=== PATIENT | female | born 1995 | race Caucasian/White ===

== ENCOUNTER 2018-05-19 21:02 | Emergency (ER) | payer OTHER ==
[~2018-05-19 21:02] MED LIST: ETON1VAG7 VG; MULT-856 PO
[2018-05-19] MEDS ORDERED: NS(*) 0.9% 1000 ML BAG 1,000 ML IV ONE (21:25)
--- NOTE | 2018-05-19 21:28 | ER Report ---
History and Physical Time Seen By MD: 21:15 Hx. of Stated Complaint: STABBING CHEST PAIN WITH SOB THAT STARTED ABOUT 45 MIN AGO HPI/ROS CHIEF COMPLAINT: Chest pain, shortness breath HISTORY OF PRESENT ILLNESS: Previously healthy 23-year-old female donated blood this morning. She felt somewhat lightheaded afterwards and took a nap. She was feeling well until approximately 2030 when she noted chest pain that was sharp a nd initially on the right upper chest that lasted 45 minutes. This recurred again this time on the left upper chest and again lasted 45 minutes. Pain was associated with shortness of breath which has continued. Patient is mildly dyspneic at this time. She does not have chest pain right now. Pain did not radiate to back, jaw, shoulders. Patient was sitting at the time. She now notes no change in position or activity that affects pain. Is not changed with exertion. She has not had recent travel, no lower extremity swelling or edema. No lower extremity pain. No family history of DVT or cardiac disease at a young age. Patient has NuvaRing, last measured. At the end of April was normal, denies tobacco, drugs, alcohol. REVIEW OF SYSTEMS: Constitutional: No fever, no chills. Eyes: No discharge. ENT: No sore throat. Cardiovascular: above Respiratory: above Gastrointestinal: No abdominal pain, no vomiting. Genitourinary: no dysuria Musculoskeletal: No back pain. Skin: No rashes. Neurological: No headache. Remainder of the 14 system rev: Yes Allergies: Coded Allergies: No Known Drug Allergies (Unverified , 05/19/18) Home Meds Reported Medications Multivitamins,Ther W-Minerals (VITAMIN AND MINERALS) 1 Each Tablet, 1 EACH PO QDAY 06/16/15 Etonogestrel/Ethinyl Estradiol (NUVARING VAGINAL RING) 1 Each Vag.ring, 1 EACH VG, VAG.RING 06/16/15 Reviewed Nurses Notes: Yes Hx Smoking: No Smoking Status: Never Smoker Hx Substance Use Disorder: No Hx Alcohol Use: Yes (SOCIALLY) Constitutional Vital Sign - Last 24 Hours 05/19/18 05/19/18 05/19/18 05/19/18 21:02 21:06 21:08 21:12 Temp 98.7 Pulse ??? 102 Resp 14 B/P (MAP) 90/70 90/70 (77) 119/81 (94) Pulse Ox 94 O2 Delivery Room Air 05/19/18 05/19/18 05/19/18 05/19/18 21:17 21:30 21:32 21:47 Pulse 90 84 ??? Resp 20 26 9 B/P (MAP) 117/78 (91) Pulse Ox 93 05/19/18 05/19/18 05/19/18 05/19/18 21:54 22:00 22:02 22:17 Pulse 73 84 B/P (MAP) 117/62 (80) 126/71 (89) Pulse Ox 95 94 05/19/18 05/19/18 05/19/18 22:30 22:32 22:41 Pulse 71 Resp 25 B/P (MAP) 102/71 (81) 86/63 (71) Pulse Ox 93 Intake and Output 05/19/18 05/19/18 05/20/18 14:59 22:59 06:59 Intake Total 1000 ml Balance 1000 ml Physical Exam General Appearance: The patient is alert, has no immediate need for airway protection and no signs of toxicity. [ ] Eyes: Pupils equal and round no pallor or injection. ENT, Mouth: Mucous membranes are moist. Respiratory: There are no retractions, lungs are clear to auscultation. Cardiovascular: Regular rate and rhythm. no m/r/g, pt has significant heart rate variability both respiratory and while talking. She appears anxious Gastrointestinal: Abdomen is soft and non tender, no masses, bowel sounds normal. Neurological: alert, oriented, no focal deficits. Skin: Warm and dry, no rashes. Musculoskeletal: Extremities are nontender, nonswollen and have full range of motion. DIFFERENTIAL DIAGNOSIS: chest pain including but not limited to myocardial ischemia, pericarditis pulmonary embolus, chest wall pain, pleural inflammation and pulmonary infectious causes. Medical Decision Making Data Points Result Diagram: 05/19/18211105/19/182111 Laboratory Hematology Test 05/19/18 21:05 05/19/18 21:12 Urine Color Straw Urine Clarity Clear Urine pH 7.0 pH (4.8-9.5) Urine Specific [place] 1.005 Urine Protein Negative mg/dL (NEGATIVE) Urine Glucose (UA) Negative mg/dL (NEGATIVE) Urine Ketones Negative mg/dL (NEGATIVE) Urine Blood Negative (NEGATIVE) Urine Nitrite Negative (NEGATIVE) Urine Bilirubin Negative (NEGATIVE) Urine Urobilinogen Negative mg/dL (0.2-1.9) Urine Leukocyte Esterase Negative (NEGATIVE) Urine RBC None /HPF (0-2/HPF) Urine WBC <1 /HPF (0-5/HPF) Urine Squamous Epithelial Cells Few /LPF (</=FEW) Urine Bacteria Negative /HPF (NONE-FEW) Urine Mucus None /HPF (NONE-FEW) Red Blood Count 4.49 M/uL (4.17-5.56) Mean Corpuscular Volume 86.0 fL (80.0-96.0) Mean Corpuscular Hemoglobin 28.8 pg (26.0-33.0) Mean Corpuscular Hemoglobin Concent 33.5 g/dL (32.0-36.0) Red Cell Distribution Width 12.3 % (11.5-14.5) Mean Platelet Volume 10.5 fL (7.2-11.1) Neutrophils (%) (Auto) 44.6 % (39.4-72.5) Lymphocytes (%) (Auto) 36.5 % (17.6-49.6) Monocytes (%) (Auto) 14.7 % (4.1-12.4) Eosinophils (%) (Auto) 2.5 % (0.4-6.7) Basophils (%) (Auto) 1.7 % (0.3-1.4) Nucleated RBC Relative Count (auto) 0.0 /100WBC Neutrophils # (Auto) 2.0 K/uL (2.0-7.4) Lymphocytes # (Auto) 1.7 K/uL (1.3-3.6) Monocytes # (Auto) 0.7 K/uL (0.3-1.0) Eosinophils # (Auto) 0.1 K/uL (0.0-0.5) Basophils # (Auto) 0.1 K/uL (0.0-0.1) Nucleated RBC Absolute Count (auto) 0.00 K/uL D-Dimer Quantitative (PE/DVT) < 0.27 ug/ml (0-0.50) Sodium Level 140 mmol/L (137-145) Potassium Level 3.8 mmol/L (3.5-5.0) Chloride Level 107 mmol/L (98-107) Carbon Dioxide Level 22 mmol/L (22-31) Blood Urea Nitrogen 8 mg/dl (7-18) Creatinine 0.60 mg/dl (0.52-1.04) Glomerular Filtration Rate Calc > 60.0 Random Glucose 102 mg/dl (75-110) Calcium Level 9.1 mg/dl (8.4-10.2) Total Bilirubin 0.2 mg/dl (0.2-1.3) Aspartate Amino Transf (AST/SGOT) 25 U/L (0-35) Alanine Aminotransferase (ALT/SGPT) 26 U/L (0-56) Alkaline Phosphatase 52 U/L (0-126) Troponin I < 0.012 ng/ml Total Protein 7.5 g/dl (6.3-8.2) Albumin 4.4 g/dl (3.5-5.0) Human Chorionic Gonadotropin, Qual Negative (NEGATIVE) Chemistry Test 05/19/18 21:05 05/19/18 21:12 Urine Color Straw Urine Clarity Clear Urine pH 7.0 pH (4.8-9.5) Urine Specific [place] 1.005 Urine Protein Negative mg/dL (NEGATIVE) Urine Glucose (UA) Negative mg/dL (NEGATIVE) Urine Ketones Negative mg/dL (NEGATIVE) Urine Blood Negative (NEGATIVE) Urine Nitrite Negative (NEGATIVE) Urine Bilirubin Negative (NEGATIVE) Urine Urobilinogen Negative mg/dL (0.2-1.9) Urine Leukocyte Esterase Negative (NEGATIVE) Urine RBC None /HPF (0-2/HPF) Urine WBC <1 /HPF (0-5/HPF) Urine Squamous Epithelial Cells Few /LPF (</=FEW) Urine Bacteria Negative /HPF (NONE-FEW) Urine Mucus None /HPF (NONE-FEW) White Blood Count 4.5 k/uL (4.5-11.0) Red Blood Count 4.49 M/uL (4.17-5.56) Hemoglobin 12.9 g/dL (12.0-16.0) Hematocrit 38.7 % (34.0-47.0) Mean Corpuscular Volume 86.0 fL (80.0-96.0) Mean Corpuscular Hemoglobin 28.8 pg (26.0-33.0) Mean Corpuscular Hemoglobin Concent 33.5 g/dL (32.0-36.0) Red Cell Distribution Width 12.3 % (11.5-14.5) Platelet Count 225 K/uL (150-450) Mean Platelet Volume 10.5 fL (7.2-11.1) Neutrophils (%) (Auto) 44.6 % (39.4-72.5) Lymphocytes (%) (Auto) 36.5 % (17.6-49.6) Monocytes (%) (Auto) 14.7 % (4.1-12.4) Eosinophils (%) (Auto) 2.5 % (0.4-6.7) Basophils (%) (Auto) 1.7 % (0.3-1.4) Nucleated RBC Relative Count (auto) 0.0 /100WBC Neutrophils # (Auto) 2.0 K/uL (2.0-7.4) Lymphocytes # (Auto) 1.7 K/uL (1.3-3.6) Monocytes # (Auto) 0.7 K/uL (0.3-1.0) Eosinophils # (Auto) 0.1 K/uL (0.0-0.5) Basophils # (Auto) 0.1 K/uL (0.0-0.1) Nucleated RBC Absolute Count (auto) 0.00 K/uL D-Dimer Quantitative (PE/DVT) < 0.27 ug/ml (0-0.50) Glomerular Filtration Rate Calc > 60.0 Calcium Level 9.1 mg/dl (8.4-10.2) Total Bilirubin 0.2 mg/dl (0.2-1.3) Aspartate Amino Transf (AST/SGOT) 25 U/L (0-35) Alanine Aminotransferase (ALT/SGPT) 26 U/L (0-56) Alkaline Phosphatase 52 U/L (0-126) Troponin I < 0.012 ng/ml Total Protein 7.5 g/dl (6.3-8.2) Albumin 4.4 g/dl (3.5-5.0) Human Chorionic Gonadotropin, Qual Negative (NEGATIVE) Coagulation Test 05/19/18 21:12 D-Dimer Quantitative (PE/DVT) < 0.27 ug/ml Urinalysis Test 05/19/18 21:05 Urine Color Straw Urine Clarity Clear Urine pH 7.0 pH (4.8-9.5) Urine Specific [place] 1.005 Urine Protein Negative mg/dL (NEGATIVE) Urine Glucose (UA) Negative mg/dL (NEGATIVE) Urine Ketones Negative mg/dL (NEGATIVE) Urine Blood Negative (NEGATIVE) Urine Nitrite Negative (NEGATIVE) Urine Bilirubin Negative (NEGATIVE) Urine Urobilinogen Negative mg/dL (0.2-1.9) Urine Leukocyte Esterase Negative (NEGATIVE) Urine RBC None /HPF (0-2/HPF) Urine WBC <1 /HPF (0-5/HPF) Urine Squamous Epithelial Cells Few /LPF (</=FEW) Urine Bacteria Negative /HPF (NONE-FEW) Urine Mucus None /HPF (NONE-FEW) EKG/Imaging EKG Interpretation 12 lead EKG: Rhythm: Normal sinus rhythm [place]: Normal QRS: Normal ST segments: Normal Monitor Interpretation: Normal Sinus Rhythm ED Course/Re-evaluation ED Course 23-year-old female presents with chest pain and dyspnea. There are no high-risk features. Heart score is less than 4. She is PERC negative. She donated blood today but it is unclear if this is associated. Her H/H is normal. She developed some nausea during the emergency department stay. She continues to have a benign abdomen. After further evaluation, there are no signs of emergent etiology at this time, however patient understands that symptoms may develop and understands strict return precautions. She is comfortable on discharge. Decision to Disposition Date: May 19, 2018 Decision to Disposition Time: 23:02 Depart Departure Latest Vital Signs Vital Signs Date Time Temp Pulse Resp B/P (MAP) Pulse Ox O2 Delivery O2 Flow Rate FiO2 05/19/18 22:41 86/63 (71) 05/19/18 22:32 71 25 93 05/19/18 21:06 98.7 Room Air Impression: Primary Impression: Dyspnea Additional Impression: Nausea Condition: Improved Disposition: HOME OR SELF-CARE Departure Forms: ER Transition Record, Medications Reconciliation, Off Work/School Form, School or Work Release?: School Number of days to be released: 1 Patient Portal Information Patient Instructions: Acute Nausea and Vomiting (ED), Dyspnea (ED) Additional Instructions: As we discussed, while your findings here were unremarkable, it is unclear what is causing your symptoms at this point. It is reasonable to go home and rest, ho wever if you have worsening symptoms or any concerns please return immediately. Please go to your primary clinic for follow up in 2-3 days for re-evaluation. Problem Qualifiers Primary Impression: Dyspnea Dyspnea type: unspecified Qualified Codes: R06.00 - Dyspnea, unspecified HILE,JACKIE C MD May 19, 2018 21:28
[2018-05-19 21:43] LABS: PLATELET COUNT, AUTOMATED 225 K/uL (150-450)
--- NOTE | 2018-05-19 22:02 | EKG ---
FACILITY: [facility] PATIENT NAME: LUIS E SAUCEDA : [id number] MR: [id number] V: [id number] EXAM DATE: ORDERING PHYSICIAN: JACKIE DECKER TECHNOLOGIST: SABINE Test Reason : CP Blood Pressure : / mmHG Vent. Rate : 080 BPM Atrial Rate : 080 BPM P-R Int : 150 ms QRS Dur : 090 ms QT Int : 380 ms P-R-T Axes : 056 073 051 degrees QTc Int : 438 ms Normal sinus rhythm Normal ECG When compared with ECG of 16-JUN-2015 19:08, No significant change was found Confirmed by JULISSA WRIGHT ([id number]) on 05/20/2018 6:37:20 AM Referred By: Confirmed By:JULISSA WRIGHT
--- NOTE | 2018-05-19 22:21 | RADIOLOGY IMAGING REPORT ---
FACILITY: [facility] PATIENT NAME: Oralia Simmons : 1995 MR: [id number] V: [id number] EXAM DATE: ORDERING PHYSICIAN: JACKIE DECKER TECHNOLOGIST: Location: [facility] Patient: Oralia Simmons : 1995 Visit/Account:[id number] Date of Sevice: 05/19/2018 CHEST PA LAT COMPARISONS: None. ADDITIONAL PERTINENT HISTORY: Dyspnea FINDINGS: Cardiomediastinal silhouette: Negative. Pulmonary vasculature: Negative. Lung macdonald: Negative. Pleural spaces: Negative. Osseous structures: Negative. Surrounding soft tissues: Negative. IMPRESSION: No evidence of acute cardiopulmonary disease. Report Dictated By: Hector Blackman MD at 05/19/2018 10:15 PM Report E-Signed By: Hector Blackman MD at 05/19/2018 10:17 PM WSN:[id number]
[2018-05-19] MEDS ORDERED: ONDANSETRON 4 MG/2 ML VIAL IVP ONE (22:40)
[2018-05-19 22:41] VITALS: BP 86/63
[2018-05-19] MEDS ORDERED: ONDANSETRON 4 MG ODT TH SL ONE (23:10)
== END 2018-05-19 23:11 | disposition home or self-care (01) ==
LOC: ER 21:23
DX: R06.00 Dyspnea, unspecified (principal); R11.0 Nausea
CPT/HCPCS: 71046; 81001; 84484; 84703; 85025; 85379; 93005; 96361; 96374; 99284; J2405; J7030; S0119; 82040; 82247; 82310; 82374; 82435; 82565; 82947; 84075; 84132; 84155; 84295; 84450; 84460; 84520